=== PATIENT | female | born 1960 | race Caucasian/White ===

== ENCOUNTER 2021-01-12 11:31 | Outpatient (CLI) | payer BC, SELFPAY | END 2021-01-12 11:32 | disposition home or self-care (01) | LOC: ANHCOVIDVC 11:31 | PROVIDERS: PCP Family Medicine | DX: Z23 Encounter for immunization (principal) | CPT/HCPCS: 0001A; 91300 ==

== ENCOUNTER 2021-02-02 11:29 | Outpatient (CLI) | payer BC, SELFPAY | END 2021-02-02 11:30 | disposition home or self-care (01) | LOC: ANHCOVIDVC 11:29 | PROVIDERS: PCP Family Medicine | DX: Z23 Encounter for immunization (principal) | CPT/HCPCS: 0002A; 91300 ==

== ENCOUNTER 2021-03-17 00:54 | Day surgery (SDC) | payer BC, SELFPAY ==
[2021-03-07 13:52] VITALS: BMI 34.7
[2021-03-17 09:18] VITALS: BP 171/90; PULSE 74; RESP 20; TEMP 36.3; O2SAT 100; BMI 37.8
[2021-03-17] MEDS: LACTATED RINGERS 1,000 ML 150 ML IV CONT (09:29)
--- NOTE | 2021-03-17 09:29 | WPDANESEPPF ---
Anes - Initial Pre Proc Eval Procedure: Operation Date: 03/17/21 10:30 Proposed Procedures p Screening Colonoscopy - David Patel MD Date/Time: 03/17/21 09:29 Surgeon: David Patel MD Pre Op Diagnosis: neoplasm screening, hx of colon polyps Patient Data Age: 61 Gender: F Height: 5 ft 2 in Weight: 93.7 kg Last Vital Signs Temp 36.3 C L 03/17/21 09:18 Pulse 74 03/17/21 09:18 Resp 20 03/17/21 09:18 BP 171/90 H 03/17/21 09:18 Pulse Ox 100 03/17/21 09:18 Allergies Allergy/AdvReac Type Severity Reaction Status Date / Time No Known Allergies Allergy Mild Verified 02/06/21 15:52 Home Medications Medication Instructions Recorded Confirmed Type clindamycin phosphate 1 % topical 1 applic TOPICAL BID #30 gm 10/20/19 03/17/21 Rx gel atorvastatin 10 mg tablet See Rx Instructions .ROUTE 01/17/21 03/07/21 Rx .COMPLEX #90 tablet losartan 50 mg tablet 50 mg PO DAILY #90 tablet 02/06/21 03/07/21 Rx Patient hx anesthesia problems: none Family hx anesthesia problems: none PMFSH Past Medical History Medical History Essential (primary) hypertension Gastroesophageal reflux disease without esophagitis Metabolic syndrome Mixed hyperlipidemia Obesity, unspecified Social History Social History Additional smoking assessment comments: pt only smoked when she was a teenager Alcohol intake: current Alcohol use details: OCCATIONAL Living arrangements: alone Gender identity (if verbalized by the patient): Female Spiritual care concerns: No Anes - Eval Final PreProcedure Day of Procedure 03/17/21 09:29 Patient weight: obese Heart: regular rate and rhythm Lungs: clear to auscultation Airway: Mallampati scale class II Neurological: alert and oriented Last oral intake: >/= 8 hours ASA classification: III Emergent: no Anesthetic plan: proceed Anesthesia type and monitoring: general GIVS and standard monitoring Informed Consent: The patient's anesthetic plan and its attendant risks and benefits were discussed with the patient/family/POA. Questions were solicited and answers provided to the satisfaction of the patient/family/POA.
--- NOTE | 2021-03-17 09:50 | PM.HPGS ---
History of Present Illness History of Present Illness Consent: Risks, benefits, and alternatives have been discussed and questions answered. Patient agrees to proceed with procedure. Chief complaint: neoplasm screening, hx of colon polyps Narrative: Hannah Olsen is a 61 year old female referred for colon cancer screening. Both of her parents have had polyps Review of Systems Review of Systems: All systems reviewed & are unremarkable except as noted in HPI and below PMFSH Past Medical History Medical History Essential (primary) hypertension Gastroesophageal reflux disease without esophagitis Metabolic syndrome Mixed hyperlipidemia Obesity, unspecified Social History Social History Additional smoking assessment comments: pt only smoked when she was a teenager Alcohol intake: current Alcohol use details: OCCATIONAL Living arrangements: alone Gender identity (if verbalized by the patient): Female Spiritual care concerns: No Meds Home Medications and Allergies Home Medications Medication Instructions Recorded Confirmed Type clindamycin phosphate 1 % topical 1 applic TOPICAL BID #30 gm 10/20/19 03/17/21 Rx gel atorvastatin 10 mg tablet See Rx Instructions .ROUTE 01/17/21 03/07/21 Rx .COMPLEX #90 tablet losartan 50 mg tablet 50 mg PO DAILY #90 tablet 02/06/21 03/07/21 Rx Allergies Allergy/AdvReac Type Severity Reaction Status Date / Time No Known Allergies Allergy Mild Verified 02/06/21 15:52 Vital Signs Vital Signs - 24 hr 03/17/21 09:18 Temperature 36.3 C L Pulse Rate 74 Respiratory Rate 20 Blood Pressure 171/90 H Pulse Oximetry 100 Exam Resp: Auscultation: clear to auscultation bilaterally Cardio: Rate: regular rate Rhythm: regular rhythm GI: GI Palp: Yes Soft to palpation and No Tenderness to palpation present (GI) Assessment and Plan Assessment and plan (1) Screening for colon cancer: Code(s): Z12.11 - Encounter for screening for malignant neoplasm of colon Status: Acute Assessment and Plan: Colonoscopy with possible biopsy or polypectomy or cautery or injection of substances.
[2021-03-17 11:03] VITALS: BP 135/72; PULSE 80; RESP 23; O2SAT 100
[2021-03-17 11:13] VITALS: BP 118/68; PULSE 78; RESP 20; O2SAT 100
[2021-03-17 11:23] VITALS: BP 147/95; PULSE 74; RESP 20; O2SAT 100
== END 2021-03-17 11:40 | disposition home or self-care (01) ==
PROVIDERS: PCP Family Medicine; Visit Provider Internal Medicine Gastroenterology
PROC: 0DJD8ZZ Inspection of Lower Intestinal Tract, Via Natural or Artificial Opening Endoscopic (ICD-10-PCS; CPT 45378; principal; 2021-03-17 10:30)
DX: Z12.11 Encounter for screening for malignant neoplasm of colon (principal); K64.8 Other hemorrhoids; Z83.71 Family history of colonic polyps; I10 Essential (primary) hypertension; K21.9 Gastro-esophageal reflux disease without esophagitis; E78.2 Mixed hyperlipidemia; E66.9 Obesity, unspecified; Z68.37 Body mass index [BMI] 37.0-37.9, adult
CPT/HCPCS: 45378; J2704; J7120

== ENCOUNTER → 2023-10-09 09:17 | Outpatient (CLI) | payer BC, SELFPAY ==
--- NOTE | ~2023-10-09 | MR_ITS ---
MRI of the right hindfoot Clinical history: Plantar fasciitis Technique: Coronal proton-density and proton-density fat-sat images, axial proton-density and proton- density fat-sat images, and sagittal proton-density and proton-density fat-sat images were acquired. Findings: Syndesmotic ligaments are intact. Anterior and posterior talofibular ligaments, and calcane ofibular ligament are intact. Deltoid ligament is intact. Medial flexor tendons, peroneal tendons, anterior extensor tendons, and Achilles tendon are intact. No osteochondral lesion of the talar dome identified. Bone marrow signals and joint spaces are intact . Minimal subtalar joint effusion present. There is minimal thickening of the origin of the plantar fascia without significant soft tissue edema . Minimal plantar calcaneal spur present. No mass lesion or fluid collection evident. Impression: Possible minimal chronic-appearing plantar fasciitis. No other significant findings. Reviewed, dictated and finalized at [facility]. KNITTER Impression: Possible minimal chronic-appearing plantar fasciitis. No other significant findings.
== END ==
PROVIDERS: PCP Family Medicine; Visit Provider Podiatrist Foot & Ankle Surgery
DX: M72.2 Plantar fascial fibromatosis (principal)
CPT/HCPCS: 73718

== ENCOUNTER 2024-02-25 07:45 | Outpatient (CLI) | payer BC, SELFPAY ==
--- NOTE | ~2024-02-25 | US_ITS ---
US abdomen complete EXAMINATION: US Abdomen Complete INDICATION: Right upper quadrant pain PROCEDURE: Realtime High Resolution abdomen ultrasound. COMPARISON: No prior studies for comparison FINDINGS: No significant gallbladder wall thickening. There are small gallbladder polyps measuring 4 mm or less. No pericholecystic fluid. Common bile duct measures 3 mm. There is a septated liver cyst measuring 5 cm. Pancreas within normal limits. Pancreatic tail is obs cured by bowel gas. Spleen is unremarkeable. Renal echotexture is within normal limits bilaterally w ithout hydronephrosis, contour deforming mass or renal stone. Right kidney measures 10.8 cm. Left kid thee measures 10.2 cm. Visualized aspects of the aorta and IVC are within normal limits. Portal vein is patent. No sonograph ic Altman's sign indicated by the technologist. IMPRESSION: 1: Gallbladder polyps. 2: Septated 5 cm liver cyst. Reviewed, dictated and finalized at location [facility].
== END 2024-02-25 07:46 ==
LOC: MICIMG 07:46
PROVIDERS: PCP Nurse Practitioner Family; Visit Provider Nurse Practitioner Family
DX: K82.4 Cholesterolosis of gallbladder (principal); K76.89 Other specified diseases of liver
CPT/HCPCS: 76700

== ENCOUNTER 2024-08-12 09:50 | Outpatient (CLI) | payer BC, SELFPAY ==
--- NOTE | 2024-08-12 | ECG_ITS ---
Test Date: 2024-08-12 10:14:32 Measurements Intervals [place] Rate: 68 P: 17 [place]: 186 QRS: -33 QRSD: 90 T: 24 QT: 381 QTc: 408 Interpretive Statements SINUS RHYTHM MARKED LEFT AXIS DEVIATION [QRS AXIS < -30] MODERATE VOLTAGE CRITERIA FOR LVH, CONSIDER NORMAL VARIANT [MEETS CRITERIA IN ONE OF: R(aVL), S(V1), R(V5), R(V5/V6)+S(V1)] POSSIBLE ANTERIOR MYOCARDIAL INFARCTION [30 ms Q WAVE IN V3/V4, OR R < 0.2 mV IN V4], OF INDETERMINATE AGE ABNORMAL ECG No previous ECG available for comparison Electronically Signed On 08-12-2024 14:05:04 CDT by Gianfranco Pantoja M.D.
== END 2024-08-12 09:51 | disposition home or self-care (01) ==
PROVIDERS: PCP Family Medicine; Visit Provider Nurse Anesthetist, Certified Registered
DX: Z01.818 Encounter for other preprocedural examination (principal); R94.31 Abnormal electrocardiogram [ECG] [EKG]
CPT/HCPCS: 93005

== ENCOUNTER 2024-11-18 07:24 | Outpatient (CLI) | payer BC, SELFPAY ==
--- NOTE | 2024-11-18 07:39 | EST_ITS ---
Patient Info Name: Hannah Olsen Age: 64 years : 1960 Gender: Female Ht: 62 in Wt: 200 lbs BSA: 2.04 m2 HR: 71 bpm BP: 166 / 102 mmHg Exam Date: 11/18/2024 9:29 AM Exam Location: Echo Lab Patient Status: Outpatient Admit Date: 11/18/2024 Staff Ordering Physician: Kelton Marroquin DO Attending Provider: Kelton Marroquin DO Exercise Technologist: Magdalena Knox RDCS Exercise Physician: Kelton Marroquin DO Exam Type: CA stress test treadmill Study Info A treadmill exercise stress test was performed. Summary 1. 1. Negative Murphy exercise stress test for ischemic ST changes by ECG criteria. 2. 2. Good functional capacity, achieving 8.9 METs of workload. 3. 3. Baseline hypertension with hypertensive response to exercise. 4. 4. Appropriate HR response to exercise. 5. 5. Appropriate HR recovery at 1 minute post exercise. 6. 6. No imaging with stress testing. 7. 7. Patient informed of the above results. Protocol: Murphy Stress ECG Details Stage: REST Duration (min): 3 min : 48 sec Speed (mph): 0.0 Grade (%): 0 HR (bpm): 72 SBP (mmHg): 166 DBP (mmHg): 102 METS: --- Stage: REST Duration (min): 4 min : 40 sec Speed (mph): 0.0 Grade (%): 0 HR (bpm): 88 SBP (mmHg): 166 DBP (mmHg): 102 METS: --- Stage: STAGE 1 Duration (min): 1 min : 0 sec Speed (mph): 1.7 Grade (%): 10 HR (bpm): 105 SBP (mmHg): 166 DBP (mmHg): 102 METS: --- Stage: STAGE 1 Duration (min): 2 min : 0 sec Speed (mph): 1.7 Grade (%): 10 HR (bpm): 116 SBP (mmHg): 166 DBP (mmHg): 102 METS: --- Stage: STAGE 1 Duration (min): 3 min : 0 sec Speed (mph): 1.7 Grade (%): 10 HR (bpm): 118 SBP (mmHg): 215 DBP (mmHg): 102 METS: --- Stage: STAGE 2 Duration (min): 1 min : 0 sec Speed (mph): 2.5 Grade (%): 12 HR (bpm): 121 SBP (mmHg): 215 DBP (mmHg): 102 METS: --- Stage: STAGE 2 Duration (min): 2 min : 0 sec Speed (mph): 2.5 Grade (%): 12 HR (bpm): 128 SBP (mmHg): 215 DBP (mmHg): 102 METS: --- Stage: STAGE 2 Duration (min): 3 min : 0 sec Speed (mph): 2.5 Grade (%): 12 HR (bpm): 130 SBP (mmHg): 197 DBP (mmHg): 100 METS: --- Stage: STAGE 3 Duration (min): 1 min : 0 sec Speed (mph): 3.4 Grade (%): 14 HR (bpm): 136 SBP (mmHg): 210 DBP (mmHg): 102 METS: --- Stage: STAGE 3 Duration (min): 1 min : 0 sec Speed (mph): 3.4 Grade (%): 14 HR (bpm): 136 SBP (mmHg): 210 DBP (mmHg): 102 METS: --- Stage: RECOVERY Duration (min): 0 min : 59 sec Speed (mph): 0.0 Grade (%): 0 HR (bpm): 118 SBP (mmHg): 210 DBP (mmHg): 102 METS: --- Stage: RECOVERY Duration (min): 1 min : 59 sec Speed (mph): 0.0 Grade (%): 0 HR (bpm): 94 SBP (mmHg): 210 DBP (mmHg): 102 METS: --- Stage: RECOVERY Duration (min): 2 min : 59 sec Speed (mph): 0.0 Grade (%): 0 HR (bpm): 86 SBP (mmHg): 187 DBP (mmHg): 106 METS: --- Stage: RECOVERY Duration (min): 3 min : 52 sec Speed (mph): 0.0 Grade (%): 0 HR (bpm): 92 SBP (mmHg): 187 DBP (mmHg): 106 METS: --- Rest HR: 88 bpm Peak HR: 136 bpm Rest Sys BP: 166 mmHg Peak Sys BP: 215 mmHg Max Pred HR: 155 bpm % Max Pred HR: 88 % Target HR: 132 bpm Max RPP: 29,240 bpm*mmHg Harvey Score: -5 BP Response: Patient exhibited a hypertensive response with stress Termination Reason: Reached target heart rate or workload Cardiac Symptoms: Shortness of breath Max ST Seg Deviation: 2.40 mm Total Time: 7 min : 0 sec Rest Landrum BP: 102 mmHg Peak Landrum BP: 102 mmHg Angina Score: None Total METS: 8.9 Resting ECG Sinus rhythm. Stress ECG No ST changes. Arrhythmias None. Report Signatures
--- NOTE | 2024-11-18 07:39 | ECHO_ITS ---
Patient Info Name: Hannah Olsen Age: 64 years : 1960 Gender: Female Ht: 62 in Wt: 200 lbs BSA: 2.04 m2 HR: 66 bpm BP: 178 / 107 mmHg Technical Quality: Good Exam Date: 11/18/2024 7:44 AM Exam Location: Echo Lab Patient Status: Outpatient Admit Date: 11/18/2024 Staff Ordering Physician: Kelton Marroquin DO Armed Security Professional: Magdalena Knox RDCS Attending Provider: Kelton Marroquin DO Referring Physician: Lopez GLEASON; Exam Type: CA echo doppler color flow Study Info Indications R06.09 - Other forms of dyspnea - encounter for preprocedural exam Complete two-dimensional, color flow and Doppler transthoracic echocardiogram is performed. Summary 1. Complete two-dimensional, color flow and Doppler transthoracic echocardiogram is performed. 2. Left ventricular chamber dimension is normal. 3. Left ventricular systolic function is normal, estimated at 65-70%. 4. The left ventricular diastolic function is grade I diastolic dysfunction. 5. E/e' 20 is elevated. 6. There is trace mitral valve regurgitation. 7. No pulmonary hypertension, estimated pulmonary arterial systolic pressure is 21 mmHg. Left Ventricle E/e' 20 is elevated. Left ventricular chamber dimension is normal. Left ventricular systolic function is normal, estimated at 65-70%. The left ventricular diastolic function is grade I diastolic dysfunction. Right Ventricle Right ventricular systolic function is normal and with normal TAPSE 2.3 cm. Right ventricular chamber dimension is normal. Left Atria Left atrial chamber dimension is normal. Right Atria Right atrial chamber dimension is normal. Aortic Valve The aortic valve is trileaflet. There is no aortic valve stenosis. There is no aortic valve regurgitation. Pulmonic Valve There is no pulmonic regurgitation. Mitral Valve There is no mitral valve stenosis. There is trace mitral valve regurgitation. Tricuspid Valve There is no tricuspid valve regurgitation. No pulmonary hypertension, estimated pulmonary arterial systolic pressure is 21 mmHg. Pericardium/Pleural There is no pericardial effusion. Inferior Vena Cava Normal inferior vena cava with >50% collapse upon inspiration consistent with normal right atrial pressure, 5 mmHg. Aorta The aortic root size at the sinus of Valsalva is normal. Left Ventricular Outflow Tract Name Value Normal LVOT 2D LVOT Diameter 2.0 cm LVOT Doppler LVOT Peak Gradient 4 mmHg LVOT Mean Gradient 2 mmHg LVOT VTI 20 cm LVOT VTI/AV VTI Ratio 0.7 LVOT Stroke Volume 64 ml LVOT CO 4.4 l/min LVOT CI 2.2 l/min/m2 Pulmonic Valve Name Value Normal RVOT Doppler RVOT Peak Gradient 3 mmHg PV Doppler PV Peak Gradient 3 mmHg Mitral Valve Name Value Normal MV Doppler MV Decel [place] 380 cm/s2 MV PHT 60 ms MV Area (PHT) 3.7 cm2 4.0-5.0 MV Diastolic Function MV E Peak Velocity 78 cm/s MV A Peak Velocity 106 cm/s MV E/A 0.7 MV Decel Time 205 ms MV Annular TDI MV E/e' (Septal) 21.9 <=8.0 MV E/e' (Lateral) 18.8 <=8.0 MV E/e' (Average) 20.4 Tricuspid Valve Name Value Normal TV Regurgitation Doppler TR Peak Velocity 203 cm/s TR Peak Gradient 16 mmHg Estimated PAP/RSVP RA Pressure 5 mmHg <=5 PA Systolic Pressure 21 mmHg <36 RV Systolic Pressure 21 mmHg <36 Aorta Name Value Normal Ascending Aorta Ao Root Diameter (MM) 3.1 cm Ao Root Diam Index (MM) 1.5 cm/m2 Aortic Valve Name Value Normal AV Doppler AV Peak Velocity 154 cm/s AV Peak Gradient 9 mmHg AV Mean Gradient 5 mmHg AV VTI 30 cm AV Area (Cont Eq VTI) 2.1 cm2 >=3.0 AV Area (Cont Eq Christiano) 2.1 cm2 AV Regurgitation 2D LVOT Area 3.1 cm2 Ventricles Name Value Normal LV Dimensions 2D/MM IVS Diastolic Thickness (2D) 0.9 cm 0.6-1.0 LVID Diastole (2D) 3.8 cm 3.8-5.2 LVIW Diastolic Thickness (2D) 0.8 cm 0.6-0.9 LVID Systole (2D) 2.3 cm 2.2-3.5 LVOT Diameter 2.0 cm LV Mass (2D Cubed) 91.59 g 67.00-162.00 LV Mass Index (2D Cubed) 45 g/m2 43-95 Relative Wall Thickness (2D) 0.41 LV Fractional Shortening/Ejection Fraction 2D/MM LV Fractional Shortening (2D) 41 % 27-45 LV EF (2D Teicholz) 72 % 54-74 LV Diastolic Volume (4C MOD) 74 ml LV EF (4C MOD) 72 % LV Diastolic Volume (2C MOD) 51 ml LV EF (2C MOD) 64 % LV Diastolic Volume (BP MOD) 62 ml 46-106 LV Diastolic Volume Index (BP MOD) 30 ml/m2 29-61 LV Systolic Volume (BP MOD) 20 ml 14-42 LV Systolic Volume Index (BP MOD) 10 ml/m2 8-24 LV EF (BP MOD) 68 % 54-74 LV Diastolic Length (4C) 7.5 cm LV Systolic Length (4C) 5.8 cm LV Stroke Volume (4C MOD) 53 ml Atria Name Value Normal LA Dimensions LA Dimension (MM) 3.7 cm 2.7-3.8 LA Volume (4C A-L) 30 ml LA Volume (BP A-L) 30 ml RA Dimensions RA Area (4C) 10.6 cm2 <=18.0 Report Signatures
== END 2024-11-18 07:25 | disposition home or self-care (01) ==
PROVIDERS: PCP Family Medicine; Visit Provider Internal Medicine Cardiovascular Disease
DX: Z01.810 Encounter for preprocedural cardiovascular examination (principal); I50.30 Unspecified diastolic (congestive) heart failure
CPT/HCPCS: 93017; 93306

== ENCOUNTER 2025-06-07 08:26 | Outpatient (CLI) | payer BC, SELFPAY ==
--- NOTE | ~2025-06-07 | DEXA_ITS ---
Bone Density Report Name: SOLA DING Age: 65 Sex: Female Ethnicity: White Date of : 1960 Indication: postmenopausal; screening for osteoporosis; Referring Provider: Lazara Padgett Study: Bone densitometry was performed. Exam Date: June 07, 2025 Accession number: [id number] Bone Density: Region BMD T-score Z-score Classification AP Spine(L1-L4) 0.831 -2.0 -0.1 Osteopenia Femoral Neck (Left) 0.750 -0.9 0.7 Normal Total Hip (Left) 0.939 0.0 1.3 Normal Femoral Neck (Right) 0.764 -0.8 0.8 Normal Total Hip (Right) 0.963 0.2 1.5 Normal Total Hip Mean 0.951 0.1 1.4 Normal World Health Organization criteria for BMD impression classify patients as: Normal (T-score at or above -1.0), Osteopenia (T-score between -1.0 and -2.5), or Osteoporosis (T-score at or below -2.5). 10-year Fracture Risk(1): Major Osteoporotic Fracture 7.3% Hip Fracture 0.5% Reported Risk Factors: [place] (), Neck BMD=0.750, BMI=38.8 (1) FRAX(R) Version 3.08. Fracture probability calculated for an untreated patient. Fracture probability may be lower if the patient has received treatment. Clinical Information Provided by Patient: Patient maximum height was 63 Menopause Age: 46 Drinks caffeinated beverages Onset of menses at age 15 Number of children 0 Impression: The patient has low bone mass, based on the Total Spine T-score. The patient has an estimated ten-year risk of hip fracture of 0.5% and an estimated ten-year risk of major fracture of 7.3%, based on the WHO FRAX algorithm. Discussion: BONE DENSITY IS LOW AT ONE OR MORE SKELETAL SITES. This patient's lowest T-score is low at one or more skeletal sites. It meets the World Health Organization's (WHO) criteria for ?low bone mass? (T-score between -1.0 and -2.5). The patient's 10-year risk of fracture as calculated by FRAX is less than the threshold where pharmacological therapy is recommended by the National Osteoporosis Foundation (NOF). However, all treatment decisions require clinical judgment and consideration of individual patient factors, including patient preferences, comorbidities, previous drug use, risk factors not captured in the FRAX model (e.g., frailty, falls, vitamin D deficiency, increased bone turnover, interval significant decline in bone density) and possible under or overestimation of fracture risk by FRAX. The patient should follow a healthful lifestyle (good nutrition with adequate calcium and vitamin D, and appropriate weight-bearing exercise). Follow-Up: Consider repeating this study in 2 to 3 years to reassess this patient's status, or sooner if there is some new clinical indication. Reported by: DIONY on 06/07/2025 8:58:00 AM. Reviewed, dictated and finalized at location A.
== END 2025-06-07 08:27 | disposition home or self-care (01) ==
LOC: MICIMG 08:27
PROVIDERS: PCP Family Medicine; Visit Provider Family Medicine
DX: M85.88 Other specified disorders of bone density and structure, other site (principal)
CPT/HCPCS: 77080